=== PATIENT | female | born 1975 | race American Indian/Alaskan Native ===

== ENCOUNTER 2023-12-17 07:59 | Outpatient (CLI) | payer BC, SELFPAY ==
[2023-12-17 20:01] LABS: Hematocrit 42.1 % (37.0-47.0); Hemoglobin 13.3 g/dL (12.0-15.0); Mean Corpuscular HGB Conc 31.6 g/dl (32-36); Mean Corpuscular Hemoglobin 28.7 pg (26-34); Mean Corpuscular Volume 90.9 fl (80-100); Platelet Count Result 316 k/mm3 (150-375); Red Blood Count 4.63 M/mm3 (4.2-5.4); Red Cell Distribution Width 13.8 % (11.5-14.5); White Blood Count 6.8 K/mm3 (4.5-10.0)
[2023-12-17 20:20] LABS: Alanine Aminotransferase 19 U/L (6-35); Albumin Level 4.1 g/dL (3.5-5.1); Alkaline Phosphatase 115 U/L (38-126); Anion Gap 5 mmol/L (4-12); Aspartate Amino Transferase 43 U/L (14-36); Bilirubin,Total 0.5 mg/dL (0.2-1.3); Blood Urea Nitrogen 17 mg/dL (7-17); Calcium 8.8 mg/dL (8.4-10.2); Carbon Dioxide 29 mmol/L (22-30); Chloride 105 mmol/L (98-107); Cholesterol 193 mg/dL (0-200); Estimated Glomerular Filt Rate > 60; Glucose 84 mg/dL (65-110); HDL Direct 69 mg/dL; Potassium 4.1 mmol/L (3.4-5.0); Sodium 139 mmol/L (137-145); Triglycerides 85 mg/dL (<150)
[2023-12-17 20:33] LABS: Hemoglobin A1C 5.6 % (<5.7)
[2023-12-17 20:45] LABS: LDL Cholesterol Direct 93 mg/dL
[2023-12-17 20:51] LABS: Free T4 Free Thyroxine 1.32 ng/mL (0.78-2.19)
[2023-12-22 10:32] LABS: Vitamin D 1,25 (OH)2 Total 42 pg/mL (18-72); Vitamin D2 1,25 (OH)2 32 pg/mL; Vitamin D3 1,25 (OH)2 10 pg/mL
== END 2023-12-17 08:00 | disposition home or self-care (01) ==
LOC: ANHGOSHLAB 08:01
PROVIDERS: PCP Family Medicine; Visit Provider Family Medicine
DX: R73.09 Other abnormal glucose (principal); F41.9 Anxiety disorder, unspecified; E66.3 Overweight; E55.9 Vitamin D deficiency, unspecified; E07.9 Disorder of thyroid, unspecified; E03.9 Hypothyroidism, unspecified
CPT/HCPCS: 36415; 80053; 80061; 82652; 83036; 84439; 84443; 85027

== ENCOUNTER 2024-09-22 08:04 | Outpatient (CLI) | payer OTHER, SELFPAY ==
--- OUTSIDE RECORDS SUMMARY | 2024-09-22 08:14 | XMS_ITS | Encounter Summary ---
Author Organization [facility] Address [address] [facility] [address] [place] [address] Phone Care Team Providers Care Auto Haulaway Driver Name Role Phone Katya Fonseca MD Primary Care Provider Reason for Visit * Reason Comments Medication Refill Encounter Details Date Type Department Care Team (Late st Contact Info) Description 02/25/2022 Refill [facility] - Family Medicine [facility] [address] [place] [address] Katya Fonseca MD [address] [place] [address] Medication Refill Social History Tobacco Use Types Packs/Day Years Used Date Smoking Tobacco: Never Smokeless Tobacco: Never Alcohol Use Standard Drinks/Week Comments No 0 (1 standard drink = 0.6 oz pur e alcohol) PHQ-2 Answer Date Recorded Total Score - Questions 1-9 0 09/25 Comments No Sex and Gender Information Value Date Recorded Sex Assigned at Not on file Legal Sex Female 7:16 PM CDT Gender Identity Not on file Sexual Orientation Not on file COVID-19 Exposure Response Date Recorded In the last 10 days, have yo u been in contact with someone who was confirmed or suspected to have Coronavirus/COVID-19? No / Unsure 02/22/2022 9:04 AM CDT documented as of this encounter Miscellaneous Notes * Telephone Encounter - Shweta Miranda RN - 02/27/2022 8:09 AM CDT Name from pharmacy: Esomeprazole Magnesium 40 MG Oral Capsule Delayed Release Will file in chart as: esomeprazole (NexIUM) 40 MG CAPSULE DELAYED RELEASE The original prescription was discontinued on 08/28/2020 documented in this encounter Plan of Treatment Not on file documented as of this encounter Visit Diagnoses Not on filedocumented in this encounter Additional Health Concerns Assessment Noted Time PHQ-9 Depression Total Score: 0 08/23/19 21 7:33 AM 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
--- OUTSIDE RECORDS SUMMARY | 2024-09-22 08:14 | XMS_ITS | Encounter Summary ---
Author Organization [facility] Address [address] [facility] [place] [address] Phone Care Team Providers Care Adjuster And Inspector Name Role Phone Katya Fonseca MD Primary Care Provider Reason for Visit * Reason Comments Medication Refill Encounter Details Date Type Department Care Team (Late st Contact Info) Description 10/19/2020 [facility]ill [facility] [address] [place] [address] Katya Fonseca MD [address] [place] [address] Medication Refill Social History Tobacco Use Types Packs/Day Years Used Date Smoking Tobacco: Never Smokeless Tobacco: Never Alcohol Use Standard Drinks/Week Comments No 0 (1 standard drink = 0.6 oz pur e alcohol) PHQ-2 Answer Date Recorded Total Score - Questions 1-9 0 07/29 Comments No Sex and Gender Information Value Date Recorded Sex Assigned at Not on file Legal Sex Female 7:16 PM CDT Gender Identity Not on file Sexual Orientation Not on file documented as of this encounter Miscellaneous Notes * Telephone Encounter - Edelmira Lema, OLMAN - 10/20/2020 4:20 PM CDT Patient should have tsh missed lab appointment yesterday, dose was changed and suggest having tsh checked prior to sending in 90 day supply of levothyroxine incase needs different dose * Telephone Encounter - Shweta Miranda RN - 10/20/2020 3:21 PM CDT Medication failed the protocol, provider to review and approve the medication order if appropriate. Requested Prescriptions Pending Prescriptions Disp Refills levothyroxine (SYNTHROID) 88 MCG Tablet [Pharmacy Med Name: Levothyroxine Sodium 88 MCG Oral Tablet] 90 Tablet 1 Sig: Take 1 tablet by mouth once daily Endocrinology: Hypothyroid Agents Failed - 10/20/2020 2:22 PM Failed - TSH in normal range and within 360 days No results found for: TSH Passed - Valid encounter within last 12 months Past Office Visits Recent Outpatient Visits 1 month ago Hypothyroidism due to acquired atrophy of thyroid [facility] Katya Beal MD 1 year ago Encounter for screening mammogram for breast cancer [facility] Katya Beal MD 2 years ago Anxiety [facility] Katya Beal MD 2 years ago Palpitations [facility] Katya Beal MD 3 years ago Hypothyroidism due to acquired atrophy of thyroid [facility] Katya Beal MD Upcoming Appointments Future Appointments In 3 weeks Keesha Barrera, OLMAN [facility] [place] SPINDLE MAKER - Recent and Past Visits Recent Visits Date Type Provider Dept 08/23/20 Office Visit Katya Fonseca MD [facility] [place] Showing recent visits within past 460 days with a meds authorizing provider and meeting all other requirements Future Appointments No visits were found meeting these conditions. Showing future appointments within next 90 days with a meds authorizing provider and meeting all other requirements escitalopram (LEXAPRO) 10 MG Tablet [Pharmacy Med Name: Escitalopram Oxalate 10 MG Oral Tablet] 90 Tablet 1 Sig: Take 1 tablet by mouth once daily Not Delegated - Psychiatry: Antidepressants Failed - 10/20/2020 2:22 PM Failed - This refill cannot be delegated Passed - Valid encounter within last 12 months Past Office Visits Recent Outpatient Visits 1 month ago Hypothyroidism due to acquired atrophy of thyroid [facility] - Katya Beal MD 1 year ago Encounter for screening mammogram for breast cancer [facility] Katya Beal MD 2 years ago Anxiety [facility] Katya Beal MD 2 years ago Palpitations [facility] Katya Beal MD 3 years ago Hypothyroidism due to acquired atrophy of thyroid [facility] Katya Beal MD Upcoming Appointments Future Appointments In 3 weeks Keesha Barrera Cecilia, PAC [facility] SPINDLE [facility]ER - Recent and Past Visits Recent Visits Date Type Provider Dept 08/23/20 Office Visit Katya Fonseca MD [facility] Showing recent visits within past 460 days with a meds authorizing provider and meeting all other requirements Future Appointments No visits were found meeting these conditions. 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
--- OUTSIDE RECORDS SUMMARY | 2024-09-22 08:14 | XMS_ITS | Clinical Summary ---
Author Organization [facility] [employer] Address [address] [place] [address] Care Team Providers Care Labor Contractor Name Role Phone Unavailable Primary Care Provider Unavailabl e Source Comments [facility],non-owned Affiliates and Associated Physician Practices is amultiple site organization consisting of ambulatory clinics and hospital sitesin [place], [place], [place] and [place]. This disclosure is being madepursuant to the Care Everywhere program and may not contain all information available regarding this patient. Last updated 18.[facility] [employer] Allergies No known active allergies Immunizations Name Administration Dates Next Due INFLUENZA VACCINE, QUADR. (F LUZONE; FLULAVAL; FLUARIX; AFLURIA QUADRIVALENT; 6MO+), 0.5 ML (IIV4) 07/01/2019 MENINGOCOCCAL CONJUGATE (MCV4P) 07/01/2019 Social History Tobacco Use Types Packs/Day Years Used Date Smoking Tobacco: Never Assessed Sex and Gender Information Value Date Recorded Sex Assigned at Not on file Gender Identity Not on file Sexual Orientation Not on file Plan of Treatment Health Maintenance Due Date Last Done Comments COLOGUARD (AGES 45-75) - COL ON CA SCREENING 1974 COLON MONITORING 1974 COLONOSCOPY - COLON CA SCREENING 1974 CT COLONOGRAPHY - COLON CA SCREENING 1974 FLEX SIG - COLON CA SCREENING 1974 LIPID TESTING 1974 MAMMOGRAM 1974 PAP SMEAR 1974 HIV SCREENING 1989 HEPATITIS C SCREENING 07/03/1992 DTAP/TDAP/TD VACCINES (1 - Tdap) 1993 HEPATITIS B VACCINE (1 of 3 - 19+ 3-dose series) 1993 Colorectal Cancer Screening 06/08/2020 FIT - COLON CA SCREENING 06/08/2020 06/08/2019 COVID-19 VACCINE (2023-2 5 season) 2024 INFLUENZA VACCINE (#1) 2024 9, 05/19/2017 PNEUMOCOCCAL VACCINE 50+ (1 of 1 - PCV) 2024 ZOSTER VACCINE (1 of 2) 2024 DEPRESSION SCREENING 07/28/2024 MENINGOCOCCAL VACCINE Aged Out 07/01/2019 No joe erika eligible based on patient's age to complete this topic HIB VACCINE Aged Out No longer eligi ble based on patient's age to complete this topic HPV VACCINE Aged Out No longer eligi ble based on patient's age to complete this topic MENINGOCOCCAL (Group B) VACCINE Aged Out No longer eligible b ased on patient's age to complete this topic PNEUMOCOCCAL VACCINE Aged Out No long er eligible based on patient's age to complete this topic Advance Directives Documents on File Type Date Recorded 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
--- OUTSIDE RECORDS SUMMARY | 2024-09-22 08:14 | XMS_ITS | Patient Health Summary ---
Author Organization [facility] Address [address] [place] [address] Care Team Providers Care Photograph Finisher Name Role Phone Unavailable Primary Care Provider Unavailabl e Note from [facility],non-owned Affiliates and Associated Physician Practices is amultiple site organization consisting of ambulatory clinics and hospital sitesin [place], [place], [place] and [place]. This disclosure is being madepursuant to the Care Everywhere program and may not contain all information available regarding this patient. Last updated 18.[facility] Allergies No known active allergies Immunizations * INFLUENZA VACCINE, QUADR. (FLUZONE; FLULAVAL; FLUARIX; AFLURIA QUADRIVALENT; 6MO+), 0.5 ML (IIV4)(Given 07/01/2019) * MENINGOCOCCAL CONJUGATE (MCV4P)(Given 07/01/2019) Social History Tobacco Use Types Packs/Day Years Used Date Smoking Tobacco: Never Assessed Sex and Gender Information Value Date Recorded Sex Assigned at Not on file Gender Identity Not on file Sexual Orientation Not on file
--- OUTSIDE RECORDS SUMMARY | 2024-09-22 08:14 | XMS_ITS | Referral Summary ---
Author Organization [facility] Address [address] [place] [address] Care Team Providers Care Siding Applicator Name Role Phone Unavailable Primary Care Provider Unavailabl e Source Comments [facility],non-owned Affiliates and Associated Physician Practices is amultiple site organization consisting of ambulatory clinics and hospital sitesin [place], [place], [place] and [place]. This disclosure is being madepursuant to the Care Everywhere program and may not contain all information available regarding this patient. 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
--- OUTSIDE RECORDS SUMMARY | 2024-09-22 08:14 | XMS_ITS | Clinical Summary ---
Author Organization [facility] Address [facility] [place] [address] Care Team Providers Care Criminal Investigator Customs Name Role Phone Paula Mallory MD Primary Care Provider [phone] Allergies No known active allergies Medications vitamin D2, ergocalciferol, (DRISDOL) 1.25 mg capsuleIndicati ons:Vitamin D deficiency Take 1 capsule (50,000 Units total) by mouth every 7 days. 06/05/2022 Active escitalopram (LEXAPRO) 10 MG tabletIndicatio ns:BARBARA (generalized anxiety disorder) Take 1 tablet (10 mg total) by mouth daily. 90 tablet 1 10/09/2022 Active levothyroxine (SYNTHROID) 75 MCG tabletIndicatio ns:Hypothyroidi sm (acquired) Take 1 tablet by mouth once daily 30 tablet 06/21/2024 Active Active Problems No known active problems Encounters Date Type Department Care Team Description 08/06/2024 Telephone [facility] - [address] [place] [address] Paula Mallory MD Follow Up from Last 3 Months Immunizations Name Administration Dates Next Due Influenza (Generic) 05/15/2021,05/19/2017 Influenza Adult (Generic) 06/03/2022,08/23/2020, 07/01/2019 MMR (MMRII) 03/10/2016,11/27/2015 Meningococcal (Menactra) 07/01/2019,12/10/2016 Family History Medical History Relation Comments Diabetes Father Hyperlipidemia Mother Relation Status Comments Father Mother Social History Tobacco Use Types Packs/Day Years Used Date Smoking Tobacco: Never Smokeless Tobacco: Never Tobacco Cessation:Counseling Given: Not Answered Alcohol Use Standard Drinks/Week Comments Never 0 (1 standard drink = 0.6 oz pur e alcohol) Comments No Sex and Gender Information Value Date Recorded Sex Assigned at Not on file Legal Sex Female 10:43 AM CDT Gender Identity Not on file Sexual Orientation Not on file Last Filed Vital Signs Vital Sign Reading Time Taken Comments Blood Pressure 149/86 10/09/2022 2:22 PM CDT Pulse 72 10/09/2022 1:21 PM CDT Temperature 36.7 C (98.1 F) 10/09/2022 1:21 PM CDT Respiratory Rate 18 10/09/2022 1:21 PM CDT Oxygen Saturation 99% 10/09/2022 1:21 PM CDT Inhaled Oxygen Concentration - - Weight 69.5 kg (153 lb 3.2 oz) 10/09/2022 1:21 P M CDT Height 157.5 cm (5' 2 ) 10/09/2022 1:21 PM CDT Body Mass Index 28.02 10/09/2022 1:21 PM CDT Plan of Treatment Health Maintenance Due Date Last Done Comments Colorectal Cancer Screening Colonoscopy (10 Years) 1974 PHQ-2 (Physician [place]) 1986 Hepatitis C 1992 DTaP, Tdap and Td Vaccines (1 - Tdap) 1993 Hepatitis B Vaccines (1 of 3 - 19+ 3-dose series) 1993 Cervical Cancer Screening Pap with HPV Testing (Age 30 to 64) Every 5 Years 2004 Mammogram Screening 2014 Annual Physical 10/10/2023 10/09/2022 COVID-19 Vaccine ( season) 2024 07/23/2021, 10/15/2020, 09/23/2020 Influenza Adult (#1) 2024 06/11/2023, 06/03/2022, 05/15/2021, Additional history exists Zoster Vaccines (1 of 2) 2024 PHQ-2 (Physician [place]) 07/28/2024 Cervical Cancer Screening Pap Smear (Age 30 to 64) Every 3 Years 06/11/2026 06/11/2023 Cervical Cancer Screening with HPV 06/11/2026 Meningococcal Vaccine Aged Out 07/01/2019, 017 No longer eligible based on patient's age to complete this topic Meningococcal B Vaccine Aged Out No l onger eligible based on patient's age to complete this topic Pneumococcal Vaccine: Pediatrics (0 to 5 Years) and At-Risk Patients (6 to 64 Years) Aged Out No longer eligible based on patient's age to complete this topic RSV Immunizations Under 20 Months Aged Out No longer eligible based on patient's age to complete this topic Insurance [facility] Care Teams Criminal Investigator Customs Relationship Specialty Start Date End Date Paula Mallory MD [address] [address] PCP - General INTERNAL MEDICINE 10/07/22
--- OUTSIDE RECORDS SUMMARY | 2024-09-22 08:15 | XMS_ITS | Encounter Summary ---
Author Organization [facility] Address [address] [place] [address] Phone Care Team Providers Care Chart Reader Name Role Phone Katya Fonseca MD Primary Care Provider Reason for Visit * Reason Comments Medication Refill Encounter Details Date Type Department Care Team (Late st Contact Info) Description 12/24/2023 Refill [facility] - Family Medicine [facility] [address] [place] [address] Edelmira Lema, OLMAN [address] [place] [address] Medication Refill Social History Tobacco Use Types Packs/Day Years Used Date Smoking Tobacco: Never Smokeless Tobacco: Never Alcohol Use Standard Drinks/Week Comments No 0 (1 standard drink = 0.6 oz pur e alcohol) PHQ-2 Answer Date Recorded Total Score - Questions 1-9 0 01/2022 Comments No Sex and Gender Information Value Date Recorded Sex Assigned at Not on file Legal Sex Female 7:16 PM CDT Gender Identity Not on file Sexual Orientation Not on file documented as of this encounter Miscellaneous Notes * Telephone Encounter - Shweta Miranda RN - 12/25/2023 8:35 AM CDT Needs BELLO * Telephone Encounter - Shweta Miranda RN - 12/25/2023 8:35 AM CDT Medication(s) refilled and signed per [facility] Chronic Medication Refill Standing Order for Pediatricand Adult Patients. Requested Prescriptions Pending Prescriptions Disp Refills metoprolol Succinate (TOPROL-XL) 25 MG TABLET SR 24 HR [Pharmacy Med Name: Metoprolol Succinate ER 25 MG Oral Tablet Extended Release 24 Hour] 30 Tablet 0 Sig: Take 1 tablet by mouth once daily Beta-Blockers Protocol Passed - 12/24/2023 2:03 PM Passed - BP on record in the past year Clinician-entered: BP Readings from Last 3 Encounters: 06/11/23 136/88 02/17/23 124/78 12/17/22 118/72 Patient-entered: No data recorded Passed - Visit with relevant provider in past 12 months or upcoming 90 days Recent Visits Date Type Provider Dept 06/11/23 Office Visit Katya Fonseca MD [facility] 02/17/23 Office Visit Katya Fonseca MD [facility] [place] Showing recent visits within past 365 days and meeting all other requirements Future Appointments No visits were found meeting these conditions. Showing future appointments within next 90 days and meeting all other requirements documented in this encounter Plan of Treatment Not on file documented as of this encounter Visit Diagnoses Not on filedocumented in this encounter Additional Health Concerns Assessment Noted Time PHQ-9 Depression Total Score: 0 06/03/20 22 7:44 AM CRAPS MANAGER documented as of this encounter Care Teams Chart Reader Relationship Specialty Start Date End Date Katya Fonseca MD [address] [place] [address] PCP - General Family Medicine 07/01/15 01/12/24 documented as of this encounter
--- OUTSIDE RECORDS SUMMARY | 2024-09-22 08:15 | XMS_ITS | Clinical Summary ---
Author Organization [facility] Address [address] [place] [address] Phone Care Team Providers Care Criminal Justice Faculty Name Role Phone Unavailable Primary Care Provider Unavailabl e Allergies No known active allergies Medications Aspirin-Acetamin ophen-Caffeine (MIGRAINE FORMULA PO) Take by mouth. Active VITAMIN D PO Take 3,000 Units by mouth daily. Active levothyroxine (SYNTHROID) 75 MCG Tablet Take 1 Tablet by mouth daily. 90 Tablet 1 06/11/2023 Active Vitamin D, Ergocalciferol, 44488 units Capsule Take 50,000 Int'l Units by mouth once a week. 8 Capsule 09/02/2023 Active escitalopram (LEXAPRO) 10 MG Tablet Take 1 Tablet by mouth daily. 90 Tablet 09/02/2023 Active metoprolol Succinate (TOPROL-XL) 25 MG TABLET SR 24 HR Take 1 tablet by mouth once daily 30 Tablet 12/25/2023 Active Active Problems Problem Noted Date Diagnosed Date Anxiety Hypothyroidism Prediabetes Encounters Date Type Department Care Team Description 09/21/2024 Refill [facility] [address] [place] [address] Katya Fonseca MD Medication Refill from Last 3 Months Immunizations Immunization Administration Dates Next Due Influenza Vaccine greater than 3 yrs 05/19/2017 05/19/2018 Influenza Vaccine, Quadrivalent, PF 05/28,06/03/2022,08/23/2020,11/2018 Influenza Vaccine,unspecifie d Formulation 06/03/2022,08/23/2020,07/01/2019 Influenza, Seasonal, Injecta ble, Undefined 05/15/2021,05/19/2017 MMR Vaccine 03/10/2016,11/27/2015 Meningococcal Vaccine 07/01/2019,12/10/2016 Family History Medical History Relation Name Comments No Known Problems Father Cancer Mother Relation Name Status Comments Father Mother Social History Tobacco Use Types Packs/Day Years Used Date Smoking Tobacco: Never Smokeless Tobacco: Never Tobacco Cessation:Counseling Given: Yes Alcohol Use Standard Drinks/Week Comments No 0 [...] Sign Reading Time Taken Comments Blood Pressure 136/88 06/11/2023 7:34 AM COATING TECHNICIAN Pulse 77 06/11/2023 7:34 AM COATING TECHNICIAN Temperature 36.4 C (97.6 F) 06/11/2023 7:34 AM COATING TECHNICIAN Respiratory Rate 18 02/17/2023 11:29 AM CDT Oxygen Saturation 100% 06/11/2023 7:34 AM COATING TECHNICIAN Inhaled Oxygen Concentration - - Weight 71.7 kg (158 lb) 06/11/2023 7:34 AM COATING TECHNICIAN Height 152.4 cm (5') 06/11/2023 7:34 AM COATING TECHNICIAN Body Mass Index 30.86 06/11/2023 7:34 AM COATING TECHNICIAN Plan of Treatment Health Maintenance Due Date Last Done Comments Hepatitis C Virus (HCV) Screening 1974 TdaP Immunization 1974 Hepatitis B Immunization (1 of 3 - 19+ 3-dose series) 1993 HPV/Cotest 2004 Colonoscopy 2019 Colorectal Cancer Screening 2019 Mammogram 02/11/2020 02/10/2019 Influenza Immunization (#1) 03/28/202405/28, 06/03/2022, 06/03/2022, Additional history exists SARS-COV-2 Immunization ( season) 2024 07/23/2021, 10/15/2020, 09/23/2020 Cologuard 2024 Immunochemical Fecal Occult Blood 2024 Pneumococcal Immunization (50+ years) (1 of 1 - PCV) 2024 Zoster Immunization (1 of 2) 2024 Cervical Cancer Screening (CCS) 06/11/2026 Pap Smear 06/11/2026 06/11/2023, 07/19/2014 Respiratory Syncytial Virus (RSV) Immunization (Adult) (1 - 1-dose 75+ series) 2049 Discussion re Starting/Frequency of Mammograms Discontinued 02/10/2019 Meningococcal Immunization (ACWY) Aged Out 07/01/2019, 12/10/2016 No longer eligibl e based on patient's age to complete this topic Rotavirus Immunization Aged Out No lo nger eligible based on patient's age to complete this topic Procedures Procedure Name Priority Date/Time Associated Diagnosis Comments PATHOLOGY CYTOLOGY PLATER HELPER Routine 06/11/2023 9:23 AM COATING TECHNICIAN Well woman exam SHERIF SCREENING BILATERAL DIGITAL W CAD W NGUYEN Routine 02/10/2019 11:39 AM CDT Encounter for screening mammogram for breast cancer from Last 3 Months or Most Recently Relevant to Health Maintenance Results * PATHOLOGY CYTOLOGY PLATER HELPER (06/11/2023 9:23 AM COATING TECHNICIAN) SPECIMEN ADEQUACY Satisfactory for evaluation. Endocervical/transf ormation zone component is absent. 06/23/2023 12:38 PM COATING TECHNICIAN [facility] DESCRIPTIVE DIAGNOSIS NEGATIVE FOR INTRAEPITHELIAL LESIONS OR MALIGNANCY. 06/23/2023 12:38 PM COATING TECHNICIAN [facility] Automated Examination Analysis of this sample has been assisted by an automated imaging and review system ([employer], [employer], [place], [place]). This case is further evaluated and finalized by a airport screener and/or pathologist. 06/23/2023 12:38 PM COATING TECHNICIAN [facility] Disclaimer The PAP smear is a screening test designed to detect cancerous or precancerous cells of the uterine cervix. It is one of the best means available for detection of cervical cancer but still carries an inherent false-negative rate. The consequences of a false-negative PAP result can be minimized by adhering to current screening guidelines. The following are general guidelines recommended by the ACS, ASCP, ASCCP, and ACOG: PAP testing is recommended every three years for women 21-29, Co-Testing , a PAP test in conjunction with an HPV (Human Papillomavirus) test for women ages 30-65, and no PAP or HPV testing for women under the age of 21 or older than 65 unless clinically indicated. 06/23/2023 12:38 PM COATING TECHNICIAN [facility] Case Report Gynecologic Cytology Report Case: [id number] Authorizing Provider: Katya Fonseca MD Collected: 06/11/2023 09:23 AM Ordering Location: [facility] - Family Received: 06/11/2023 09:23 AM Medicine - [place] First Screen: Andrae Bryant Rescreen: Sintia Lucio Specimen: TP Screen, Cervix/Endocervix 06/23/2023 12:38 PM COATING TECHNICIAN [facility] Other CERVIX UTERI STRUCTURE / Unknown Non-Phlebotomy Collection / Unknown 06/11/2023 9:23 AM COATING TECHNICIAN 06/11/2023 9:23 AM COATING TECHNICIAN us Katya Fonseca MD PATHOLOGY/CYTOLOGY ORDERABL ES Final Result [facility] [address] [place] [address], [place] * SHERIF SCREENING BILATERAL DIGITAL W CAD W NGUYEN (02/10/2019 11:39 AM CDT) Anatomical Region Laterality Modality breast Bilateral Mammography 02/10/2019 11:4 8 AM CDT Narrative 02/10/2019 3:44 PM CDT - SHERIF SCREENING BILATERAL DIGITAL W CAD W NGUYEN BILATERAL DIGITAL SCREENING MAMMOGRAM 3D/2D WITH CAD WITH MEDIOLATERAL OBLIQUE CRANIOCAUDAL: 02/10/2019 The study was acquired using digital technology and interpreted from soft copy. Current study was also evaluated with ICAD version 7.2. CLINICAL: Baseline screening. Patient has no complaints. No personal history of cancer. No family history of breast cancer. COMPARISONS: No prior exams were available for comparison. BREAST TISSUE:There are scattered fibroglandular densities in both breasts. FINDINGS: No significant masses, calcifications, or other findings are seen in either breast. IMPRESSION: BI-RAD 1 NEGATIVE There is no mammographic evidence of malignancy. A 1 year screening mammogram is recommended. The patient has been or will be contacted. The patient will be entered into a reminder system with a target due date of 1 year for her next screening exam. Electronically signed by: Helen pinto/penrad:02/10/2019 15:13:56 Mold Closer: [facility] ([place]: Normal Exam Reading location: MON BI-RADS: 1 Negative Procedure Note Helen Atkins MD - 02/10/2019 - SHERIF SCREENING BILATERAL DIGITAL W CAD W NGUYEN BILATERAL DIGITAL SCREENING MAMMOGRAM 3D/2D WITH CAD WITH MEDIOLATERAL OBLIQUE CRANIOCAUDAL: 02/10/2019 The study was acquired using digital technology and interpreted from soft copy. Current study was also evaluated with ICAD version 7.2. CLINICAL: Baseline screening. Patient has no complaints. No personal history of cancer. No family history of breast cancer. COMPARISONS: No prior exams were available for comparison. BREAST TISSUE:There are scattered fibroglandular densities in both breasts. FINDINGS: No significant masses, calcifications, or other findings are seen in either breast. IMPRESSION: BI-RAD 1 NEGATIVE There is no mammographic evidence of malignancy. A 1 year screening mammogram is recommended. The patient has been or will be contacted. The patient will be entered into a reminder system with a target due date of 1 year for her next screening exam. Electronically signed by: Helen Atkins M.D. rb/penrad:02/10/2019 15:13:56 Mold Closer: Em Porter ([place]), [facility] sent: Normal Exam Reading location: MON BI-RADS: 1 Negative Katya Fonseca MD IMG MAMMO ORDERABLES Final Result from Last 3 Months or Most Recently Relevant to Health Maintenance Insurance [facility]
--- OUTSIDE RECORDS SUMMARY | 2024-09-22 08:15 | XMS_ITS | Encounter Summary ---
Author Organization [facility] Address [address] [facility] [place] [address] Phone Care Team Providers Care Casting Operator Name Role Phone Katya Fonseca MD Primary Care Provider Reason for Visit * Reason Comments Medication Refill Encounter Details Date Type Department Care Team (Late st Contact Info) Description 07/03/2023 Refill [facility] [address] [place] [address] Katya Fonseca MD [address] [place] [address] Medication Refill Social History Tobacco Use Types [...] Telephone Encounter - Shweta Miranda RN - 07/04/2023 10:41 AM CST Name from pharmacy: Vitamin D (Ergocalciferol) 1.25 MG (48880 UT) Oral Capsule Will file in chart as: ergocalciferol (VITAMIN D) 57718 UNIT Capsule The original prescription was discontinued on 06/11/2023 by Katya Fonseca MD TECHNICAL MGR documented in this encounter Plan of Treatment Not on file documented as of this encounter Visit Diagnoses Diagnosis Low vitamin D level documented in this encounter Additional Health Concerns Assessment Noted Time PHQ-9 Depression Total Score: 0 06/03/20 22 7:44 AM DEV TECHNICAL MGR documented as of this encounter Care Teams Casting Operator Relationship Specialty Start Date End Date Katya Fonseca MD [address] [place] [address] PCP - General Family Medicine 07/01/15 01/12/24 documented as of this encounter
--- OUTSIDE RECORDS SUMMARY | 2024-09-22 08:15 | XMS_ITS | Encounter Summary ---
Author Organization [facility] Address [address] [facility] [place] [address] Phone Care Team Providers Care Ip Technology Transactions Attorney Name Role Phone Katya Fonseca MD Primary Care Provider [phone] Reason for Visit * Reason Comments Medication Refill Encounter Details Date Type Department Care Team (Late st Contact Info) Description 03/07/2023 Refill [facility] [address] [place] [address] Katya Fonseca MD [address] [place] [address] Medication Refill Social History Tobacco Use Types [...] suspected to have Coronavirus/COVID-19? No / Unsure 02/17/2023 11:28 AM CDT documented as of this encounter Miscellaneous Notes * Telephone Encounter - Shweta Miranda RN - 03/07/2023 3:20 PM CDT Per nursing clinical judgement, provider to review and approve the medication(s) order(s) if appropriate. Requested Prescriptions Pending Prescriptions Disp Refills ergocalciferol (VITAMIN D) 96457 UNIT Capsule [Pharmacy Med Name: Vitamin D (Ergocalciferol) 1.25 MG (87277 UT) Oral Capsule] 12 Capsule 0 Sig: Take 1 capsule by mouth once a week Vitamin Supplements (Adult) Protocol Passed - 03/07/2023 1:03 PM Passed - Visit with relevant provider in past 12 months or upcoming 90 days Recent Visits Date Type Provider Dept 02/17/23 Office Visit Katya Fonseca MD [facility] [place] 12/17/22 Office Visit Katya Fonseca MD [facility] [place] 06/03/22 Office Visit Katya Fonseca MD [facility] [place] 03/21/22 Office Visit Katya Fonseca MD [facility] [place] Showing recent visits within past 365 days and meeting all other requirements Future Appointments No visits were found meeting these conditions. Showing future appointments within next 90 days and meeting all other requirements Passed - Vitamin D dose not greater than 1.25mg documented in this encounter Plan of Treatment Not on file documented as of this encounter Visit Diagnoses Diagnosis Low vitamin D level documented in this encounter Additional Health Concerns Assessment Noted Time PHQ-9 Depression Total Score: 0 06/03/20 7:44 AM AIRCONDITIONING DRAFTING OFFICER documented as of this encounter Care Teams Ip Technology Transactions Attorney Relationship Specialty Start Date End Date Katya Fonseca MD [address] [place] [address] PCP - General Family Medicine 07/01/15 01/12/24 documented as of this encounter
--- OUTSIDE RECORDS SUMMARY | 2024-09-22 08:15 | XMS_ITS | Encounter Summary ---
Author Organization [facility] Address [address] [facility] [place] [address] Phone Care Team Providers Care Caretaker Grounds Name Role Phone Unavailable Primary Care Provider Unavailabl e Reason for Visit * Reason Comments Medication Refill Encounter Details Date Type Department Care Team (Late st Contact Info) Description 09/21/2024 Refill [facility] [address] [place] [address] Katya Fonseca MD [address] [place] [address] Medication Refill Social History Tobacco Use Types [...] on file documented as of this encounter Plan of Treatment Not on file documented as of this encounter Visit Diagnoses Not on filedocumented in this encounter Additional Health Concerns Assessment Noted Time PHQ-9 Depression Total Score: 0 06/03/20 22 7:44 AM ENGRAVER LETTERING documented as of this encounter
--- OUTSIDE RECORDS SUMMARY | 2024-09-22 08:15 | XMS_ITS | Encounter Summary ---
Author Organization [facility] Address [address] [facility] [address] Phone Care Team Providers Care Cover Machine Operator Name Role Phone Katya Fonseca MD Primary Care Provider [phone] Reason for Visit * Reason Comments Medication Refill Encounter Details Date Type Department Care Team (Late st Contact Info) Description 09/02/2023 Refill [facility] - Family Medicine [facility] [address] [place] [address] Katya Fonseca MD [address] [place] [address] Medication Refill Social History Tobacco Use Types [...] Telephone Encounter - Shweta Miranda RN - 09/03/2023 7:33 AM CST Name from pharmacy: Escitalopram Oxalate 10 MG Oral Tablet Will file in chart as: escitalopram (LEXAPRO) 10 MG Tablet The original prescription was reordered on 09/02/2023 by Edelmira Lema PAC. Y LEVEL ACCOUNT MANAGER * Telephone Encounter - Shweta Miranda RN - 09/02/2023 2:16 PM CST duplicate Y LEVEL ACCOUNT MANAGER documented in this encounter Plan of Treatment Not on file documented as of this encounter Visit Diagnoses Not on filedocumented in this encounter Additional Health Concerns Assessment Noted Time PHQ-9 Depression Total Score: 0 06/03/20 22 7:44 AM ENTRY LEVEL ACCOUNT MANAGER documented as of this encounter Care Teams Cover Machine Operator Relationship Specialty Start Date End Date Katya Fonseca MD [address] [place] [address] PCP - General Family Medicine 07/01/15 01/12/24 documented as of this encounter
--- OUTSIDE RECORDS SUMMARY | 2024-09-22 08:15 | XMS_ITS | Encounter Summary ---
Author Organization [facility] Address [address] [facility] [place] [address] Phone Care Team Providers Care Wardrobe Specialty Worker Name Role Phone Katya Fonseca MD Primary Care Provider Reason for Visit * Reason Onset Date Comments Referral 04/08/2023 External Gastroe nterology Referral Encounter Details Date Type Department Care Team (Late st Contact Info) Description 04/08/2023 Telephone [facility] [address] [place] [address] Katya Fonseca MD [address] [place] [address] Referral (External Gastroenterology Referral) Social History Tobacco Use Types Packs/Day Years Used Date Smoking Tobacco: Never Smokeless Tobacco: Never Alcohol Use Standard Drinks/Week Comments No 0 (1 standard drink = 0.6 oz pur e alcohol) PHQ-2 Answer Date Recorded Total Score - Questions 1-9 0 11/0 01/2022 Comments No Sex and Gender Information Value Date Recorded Sex Assigned at Not on file Legal Sex Female 7:16 PM CDT Gender Identity Not on file Sexual Orientation Not on file documented as of this encounter Miscellaneous Notes * Telephone Encounter - Erika Rubio - 04/08/2023 10:08 AM CDT SITUATION: [facility] Referrals is requesting provider review for External Gastroenterology Referral. BACKGROUND: Referral unable to be processed. ASSESSMENT: Request for provider review due to the following reason(s): Patient refusal or unable to contact patient. RECOMMENDATION: Based on the above information the provider has the following option(s): Multiple attempts have been made to contact patient about referral with no response. No further attempts will be made. Referral closed. documented in this encounter Plan of Treatment Not on file documented as of this encounter Visit Diagnoses Not on filedocumented in this encounter Additional Health Concerns Assessment Noted Time PHQ-9 Depression Total Score: 0 06/03/20 22 7:44 AM WELDING TEACHER documented as of this encounter Care Teams Wardrobe Specialty Worker Relationship Specialty Start Date End Date Katya Fonseca MD [address] [place] [address] PCP - General Family Medicine 07/01/15 01/12/24 documented as of this encounter
[2024-09-22 10:40] LABS: Hematocrit 41.3 % (37.0-47.0); Hemoglobin 13.2 g/dL (12.0-15.0); Mean Corpuscular Hemoglobin 29.3 pg (26-34); Mean Corpuscular Volume 91.8 fl (80-100); Mean Platelet Volume 11.6 fl (7.4-10.4); Platelet Count Result 330 k/mm3 (150-375); Red Cell Distribution Width 13.3 % (11.5-14.5); White Blood Count 7.2 K/mm3 (4.5-10.0)
[2024-09-22 11:30] LABS: Alanine Aminotransferase 21 U/L (6-35); Alkaline Phosphatase 107 U/L (38-126); Anion Gap 10 mmol/L (4-12); Aspartate Amino Transferase 38 U/L (14-36); Bilirubin,Total 0.5 mg/dL (0.2-1.3); Blood Urea Nitrogen 15 mg/dL (7-17); Carbon Dioxide 26 mmol/L (22-30); Chloride 103 mmol/L (98-107); Cholesterol 201 mg/dL (0-200); Estimated Glomerular Filt Rate > 60; Glucose 91 mg/dL (65-110); HDL Direct 72 mg/dL; Sodium 139 mmol/L (137-145); Triglycerides 73 mg/dL (<150)
[2024-09-22 11:41] LABS: LDL Cholesterol Direct 81 mg/dL
[2024-09-22 11:58] LABS: Thyroid Stimulating Hormone 0.228 uIU/mL (0.465-4.680)
[2024-09-22 20:56] LABS: Hemoglobin A1C 5.7 % (<5.7)
== END 2024-09-22 08:05 | disposition home or self-care (01) ==
LOC: ANHGOSHLAB 08:05
PROVIDERS: PCP Family Medicine; Visit Provider Family Medicine
DX: E55.9 Vitamin D deficiency, unspecified (principal); R73.09 Other abnormal glucose; E07.9 Disorder of thyroid, unspecified; E66.3 Overweight; E03.9 Hypothyroidism, unspecified; Z79.899 Other long term (current) drug therapy
CPT/HCPCS: 36415; 80053; 80061; 82652; 83036; 84443; 85027

== ENCOUNTER 2025-04-12 07:53 | Outpatient (CLI) | payer OTHER, SELFPAY ==
[2025-04-12 19:33] LABS: Hemoglobin A1C 5.7 % (<5.7)
[2025-04-12 19:37] LABS: Alanine Aminotransferase 14 U/L (6-35); Albumin Level 4.0 g/dL (3.5-5.1); Alkaline Phosphatase 102 U/L (38-126); Anion Gap 8 mmol/L (4-12); Aspartate Amino Transferase 43 U/L (14-36); Bilirubin,Total 0.4 mg/dL (0.2-1.3); Blood Urea Nitrogen 16 mg/dL (7-17); Calcium 8.7 mg/dL (8.4-10.2); Carbon Dioxide 27 mmol/L (22-30); Chloride 104 mmol/L (98-107); Cholesterol 201 mg/dL (0-200); Estimated Glomerular Filt Rate > 60; Glucose 66 mg/dL (65-110); HDL Direct 72 mg/dL; Potassium 3.8 mmol/L (3.4-5.0); Sodium 139 mmol/L (137-145); Total Protein 7.6 g/dL (6.3-8.2); Triglycerides 70 mg/dL (<150)
[2025-04-12 19:45] LABS: Hematocrit 41.5 % (37.0-47.0); Hemoglobin 12.8 g/dL (12.0-15.0); Mean Corpuscular HGB Conc 30.8 g/dl (32-36); Mean Corpuscular Hemoglobin 29.1 pg (26-34); Mean Corpuscular Volume 94.3 fl (80-100); Platelet Count Result 288 k/mm3 (150-375); Red Blood Count 4.40 M/mm3 (4.2-5.4); White Blood Count 6.6 K/mm3 (4.5-10.0)
[2025-04-12 20:01] LABS: Free T4 Free Thyroxine 0.88 ng/dL (0.78-2.19)
[2025-04-12 20:46] LABS: Thyroid Stimulating Hormone 20.000 uIU/mL (0.465-4.680)
[2025-04-16 07:09] LABS: 1,25-Dihydroxy, Vitamin D-2 <10 pg/mL (.); 1,25-Dihydroxy, Vitamin D-3 44 pg/mL (.); Total 1,25-Dihydroxy,Vitamin D 52 pg/mL (.)
== END 2025-04-12 07:54 | disposition home or self-care (01) ==
LOC: ANHGOSHLAB 07:54
PROVIDERS: PCP Family Medicine; Visit Provider Family Medicine
DX: F41.9 Anxiety disorder, unspecified (principal); Z79.899 Other long term (current) drug therapy; R73.09 Other abnormal glucose; E07.9 Disorder of thyroid, unspecified; E03.9 Hypothyroidism, unspecified; E55.9 Vitamin D deficiency, unspecified; E66.3 Overweight; Z00.00 Encounter for general adult medical examination without abnormal findings
CPT/HCPCS: 36415; 80053; 80061; 82652; 83036; 84439; 84443; 85027

== ENCOUNTER 2025-05-13 16:02 | Outpatient (CLI) | payer OTHER, SELFPAY ==
--- OUTSIDE RECORDS SUMMARY | 2025-05-13 16:05 | XMS_ITS | Encounter Summary ---
Author Organization [facility] Address [address] [place] [address] Phone Care Team Providers Care Spray Machine Loader Name Role Phone Katya Fonseca MD Primary Care Provider Reason for Visit * Reason Comments Medication Refill Encounter Details Date Type Department Care Team (Late st Contact Info) Description 12/24/2023 Refill [facility] - Family Medicine [facility] [address] [place] [address] Edelmira Lema, OLMAN [address] [place] [address] Medication Refill Social History Tobacco Use Types [...] AM CDT Medication(s) refilled and signed per [facility] Chronic Medication Refill Standing Order for Pediatricand [...] [place] 02/17/23 Office Visit Katya Fonseca MD [facility] Dmitry Showing recent visits within past 365 [...] Total Score: 0 06/03/20 22 7:44 AM INSPECTOR SUBASSEMBLY documented as of this encounter Care Teams Spray Machine Loader Relationship Specialty Start Date End Date Katya Fonseca MD PCP - General Family Medicine 07/01/15 01/12/24 documented as of this encounter
--- OUTSIDE RECORDS SUMMARY | 2025-05-13 16:05 | XMS_ITS | Encounter Summary ---
Author Organization [facility] Address [address] [place] [address] Phone Care Team Providers Care Patient Sitter Name Role Phone Katya Fonseca MD Primary Care Provider Reason for Visit * Reason Comments Medication Refill Encounter Details Date Type Department Care Team (Late st Contact Info) Description 03/07/2023 Refill [facility] - Family [facility] [address] [place] [address] [place] [address] [place] [address] Medication Refill Social History Tobacco Use Types [...] Pending Prescriptions Disp Refills ergocalciferol (VITAMIN D) 71412 UNIT Capsule [Pharmacy Med Name: Vitamin D (Ergocalciferol) 1.25 MG (51043 UT) Oral Capsule] 12 Capsule 0 Sig: [...] Total Score: 0 06/03/20 22 7:44 AM DIRECTOR CORPORATE COMMUNICATIONS documented as of this encounter Care Teams Patient Sitter Relationship Specialty Start Date End Date Katya Fonseca MD PCP - General Family Medicine 07/01/15 01/12/24 documented as of this encounter
--- OUTSIDE RECORDS SUMMARY | 2025-05-13 16:05 | XMS_ITS | Encounter Summary ---
Author Organization [facility] Address [address] [facility] [place] [address] Phone Care Team Providers Care Welding Machine Operator Gas Name Role Phone Katya Fonseca MD Primary Care Provider Reason for Visit * Reason Comments Medication Refill Encounter Details Date Type Department Care Team (Late st Contact Info) Description 09/02/2023 Refill [facility] - Family Medicine [facility] [address] [place] [address] [place] [address] [place] [address] Medication Refill Social History Tobacco Use Types [...] prescription was reordered on 09/02/2023 by Edelmira Lema, PAC. NE PUBLISHER * Telephone Encounter - Shweta Miranda RN - 09/02/2023 2:16 PM CST duplicate NE PUBLISHER documented in this encounter Plan of Treatment Not on file documented as of this encounter Visit Diagnoses Not on filedocumented in this encounter Additional Health Concerns Assessment Noted Time PHQ-9 Depression Total Score: 0 06/03/20 22 7:44 AM ONLINE PUBLISHER documented as of this encounter Care Teams Welding Machine Operator Gas Relationship Specialty Start Date End Date Katya Fonseca MD PCP - General Family Medicine 07/01/15 01/12/24 documented as of this encounter
--- OUTSIDE RECORDS SUMMARY | 2025-05-13 16:05 | XMS_ITS | Encounter Summary ---
Author Organization [facility] Address [address] [facility] [place] [address] Phone Care Team Providers Care Film Developing Machine Operator Name Role Phone Katya Fonseca MD Primary Care Provider [phone] Reason for Visit * Reason Comments Medication Refill Encounter Details Date Type Department Care Team (Late st Contact Info) Description 07/03/2023 Refill [facility] [address] [place] [address] [place] [address] [place] [address] Medication Refill Social History Tobacco Use Types [...] from pharmacy: Vitamin D (Ergocalciferol) 1.25 MG (00880 UT) Oral Capsule Will file in chart as: ergocalciferol (VITAMIN D) 56725 UNIT Capsule The original prescription was discontinued on 06/11/2023 by Katya Fonseca MD E RIGGER documented in this encounter Plan of Treatment Not on file documented as of this encounter Visit Diagnoses Diagnosis Low vitamin D level documented in this encounter Additional Health Concerns Assessment Noted Time PHQ-9 Depression Total Score: 0 06/03/20 22 7:44 AM CABLE RIGGER documented as of this encounter Care Teams Film Developing Machine Operator Relationship Specialty Start Date End Date Katya Fonseca MD PCP - General Family Medicine 07/01/15 01/12/24 documented as of this encounter
--- OUTSIDE RECORDS SUMMARY | 2025-05-13 16:05 | XMS_ITS | Clinical Summary ---
Author Organization [facility] Address [address] [place] [address] Care Team Providers Care Chro Name Role Phone Unavailable Primary Care Provider Unavailabl e Source Comments [facility],non-owned Affiliates and Associated Physician Practices is amultiple site organization consisting of ambulatory clinics and hospital sitesin [place], [place], [place] and [place]. This disclosure is being madepursuant to the Care Everywhere program and may not contain all information available regarding this patient. Last updated 18.[facility] [employer] Allergies No known active allergies Immunizations Immunization Administration Dates Next Due INFLUENZA VACCINE, QUADR. (F LUZONE; FLULAVAL; FLUARIX; AFLURIA QUADRIVALENT; 6MO+), 0.5 ML (IIV4) 07/01/2019 MENINGOCOCCAL ACWY (MCV4P) VAC IM 07/01/2019 Social History Tobacco Use Types Packs/Day Years Used Date Smoking Tobacco: Never Assessed Comments Unknown Sex and Gender Information Value Date Recorded Sex Assigned at Not on file Legal Sex Female 5:15 PM CDT Gender Identity Not on file Sexual Orientation Not on file Plan of Treatment Health Maintenance Due Date Last Done Comments COLOGUARD (AGES 45-75) - COL ON CA SCREENING 1974 COLON MONITORING 1974 COLONOSCOPY - COLON CA SCREENING 1974 CT COLONOGRAPHY - COLON CA SCREENING 1974 FLEX SIG - COLON CA SCREENING 1974 LIPID TESTING 1974 MAMMOGRAM 1974 HIV SCREENING 1989 HEPATITIS C SCREENING 07/03/1992 DTAP/TDAP/TD VACCINES (1 - Tdap) 1993 HEPATITIS B VACCINE (1 of 3 - 19+ 3-dose series) 1993 Colorectal Cancer Screening 06/08/2020 FIT - COLON CA SCREENING 06/08/2020 06/08/2019 PNEUMOCOCCAL VACCINE 50+ (1 of 1 - PCV) 2024 ZOSTER VACCINE (1 of 2) 2024 DEPRESSION SCREENING 07/28/2024 COVID-19 VACCINE (1 - 2023-2 5 season) 2025 INFLUENZA VACCINE (#1) 2025 9, 05/19/2017 MENINGOCOCCAL GROUPS A/C/Y/W VACCINE Aged Out 07/01/2019 No longer eligible b ased on patient's age to complete this topic HIB VACCINE Aged Out No longer eligi ble based on patient's age to complete this topic HPV VACCINE Aged Out No longer eligi ble based on patient's age to complete this topic MENINGOCOCCAL (Group B) VACCINE SHARED DECISION-MAKING Aged Out No longer eligible based on patient's age to complete this topic Insurance Advance Directives Documents on File Type Date Recorded Patient Network Account Manager Expl anation Adv Directive/Living Will/POA 12/11/2016
--- OUTSIDE RECORDS SUMMARY | 2025-05-13 16:05 | XMS_ITS | Encounter Summary ---
Author Organization [facility] Address [address] [facility] [place] [address] Phone Care Team Providers Care Manager Desktop Name Role Phone Unavailable Primary Care Provider Unavailabl e Reason for Visit * Reason Comments Medication Refill Encounter Details Date Type Department Care Team (Late st Contact Info) Description 09/21/2024 Refill [facility] [address] [place] [address] [place] [id number] [phone] Medication Refill Social History Tobacco Use Types [...] Depression Total Score: 0 06/03/20 7:44 AM RIBBON TIER documented as of this encounter
--- OUTSIDE RECORDS SUMMARY | 2025-05-13 16:05 | XMS_ITS | Clinical Summary ---
Author Organization [facility] Address [address] [place] [id number] Care Team Providers Care Medical Office Administrator Name Role Phone Paula Mallory MD Primary Care Provider [phone] Allergies No known active allergies Medications vitamin [...] Active Active Problems No known active problems Immunizations Immunization Administration Dates Next Due Influenza (Generic) 05/15/2021,05/19/2017 [...] P M CDT Height 157.5 cm (5' 2) 10/09/2022 1:21 PM CDT Body Mass Index 28.02 10/09/2022 1:21 PM CDT Plan of Treatment Health Maintenance Due Date Last Done Comments Colorectal Cancer Screening Colonoscopy (10 Years) 1974 Hepatitis C 1992 DTaP, Tdap and Td Vaccines (1 - Tdap) 1993 Hepatitis B Vaccines (1 of 3 - 19+ 3-dose series) 1993 Cervical Cancer Screening Pap with HPV Testing (Age 30 to 64) Every 5 Years 2004 Mammogram Screening 2014 Annual Physical 10/10/2023 10/09/2022 Pneumococcal Vaccine: 50+ Years (1 of 1 - PCV) 2024 Zoster Vaccines (1 of 2) 2024 PHQ-2 (Physician [place]) 07/28/2024 COVID-19 Vaccine ( season) 2025 07/23/2021, 10/15/2020, 09/23/2020 Influenza Adult (#1) 2025 06/11/2023, 06/03/2022, 05/15/2021, Additional history exists Cervical Cancer Screening Pap Smear (Age 30 to 64) Every 3 Years 06/11/2026 06/11/2023 Cervical Cancer Screening with HPV 06/11/2026 Meningococcal Vaccine Aged Out 07/01/2019, 017 No longer eligible based on patient's age to complete this topic Hepatitis A Vaccines Aged Out No long er eligible based on patient's age to complete this topic Meningococcal B Vaccine Aged Out No l onger eligible based on patient's age to complete this topic RSV Immunizations Under 20 Months Aged Out No longer eligible based on patient's age to complete this topic Insurance [facility] Care Teams Medical Office Administrator Relationship Specialty Start Date End Date Paula Malolry MD [address] [address] PCP - General INTERNAL MEDICINE 10/07/22
--- OUTSIDE RECORDS SUMMARY | 2025-05-13 16:05 | XMS_ITS | Encounter Summary ---
Author Organization [facility] Address [address] [place] [address] Phone Care Team Providers Care Candle Extrusion Machine Operator Name Role Phone Katya Fonseca MD Primary Care Provider [phone] Reason for Visit * Reason Comments Medication Refill Encounter Details Date Type Department Care Team (Late st Contact Info) Description 10/19/2020 Refill [facility] [address] [place] [address] [place] [address] [place] [address] Medication Refill Social History Tobacco [...] Miscellaneous Notes * Telephone Encounter - Edelmira Lema PAC - 10/20/2020 4:20 PM CDT Patient should [...] Hypothyroidism due to acquired atrophy of thyroid [facility] Katya Beal MD 1 year ago Encounter for screening mammogram for breast cancer [facility] Katya Beal MD 2 years ago Anxiety [facility] Katya Beal MD 2 years ago Palpitations [facility] Katya Beal MD 3 years ago Hypothyroidism due to acquired atrophy of thyroid [facility] Katya Beal MD Upcoming Appointments Future Appointments In 3 weeks Keesha Barrera Cecilia, OLMAN [facility] Gastroenterology [facility] PAPER MAKING MACHINE OPERATOR - Recent and Past Visits Recent Visits Date Type Provider Dept 08/23/20 Office Visit Katya Fonseca MD [facility] Showing recent visits within past 460 days [...] Hypothyroidism due to acquired atrophy of thyroid [facility] - Katya Beal MD 1 year ago Encounter for screening mammogram for breast cancer [facility] - Katya Beal MD 2 years ago Anxiety [facility] - Katya Beal MD 2 years ago Palpitations [facility] - Katya Beal MD 3 years ago Hypothyroidism due to acquired atrophy of thyroid [facility] - Katya Beal MD Upcoming Appointments Future Appointments In 3 weeks Keesha Barrera Cecilia, PAC [facility] Gastroenterology - [facility] PAPER MAKING MACHINE OPERATOR - Recent and Past Visits Recent Visits Date Type Provider Dept 08/23/20 Office Visit Katya [facility]sec[facility] Dmitry Showing recent visits within past 460 [...] Total Score: 0 08/23/19 21 7:33 AM SENIOR INTERACTION DESIGNER documented as of this encounter Care Teams Candle Extrusion Machine Operator Relationship Specialty Start Date End Date Katya Fonseca MD PCP - General Family Medicine 07/01/15 01/12/24 documented as of this encounter
--- OUTSIDE RECORDS SUMMARY | 2025-05-13 16:05 | XMS_ITS | Encounter Summary ---
Author Organization [facility] Address [address] [facility] [place] [address] Phone Care Team Providers Care Band Edger Name Role Phone Katya Fonseca MD Primary Care Provider [phone] Reason for Visit * Reason Onset Date Comments Referral 04/08/2023 External Gastroe nterology Referral Encounter Details Date Type Department Care Team (Late st Contact Info) Description 04/08/2023 Telephone [facility] [address] [place], [place] [id number] [place] [address] [phone] Referral (External Gastroenterology Referral) Social History Tobacco [...] Rubio - 04/08/2023 10:08 AM CDT SITUATION: [facility] Referrals is requesting provider review for External [...] Total Score: 0 06/03/20 22 7:[address] MAGISTRATE documented as of this encounter Care Teams Band Edger Relationship Specialty Start Date End Date Katya Fonseca MD PCP - General Family Medicine 07/01/15 01/12/24 documented as of this encounter
--- OUTSIDE RECORDS SUMMARY | 2025-05-13 16:05 | XMS_ITS | Clinical Summary ---
Author Organization [facility] Address [address] [place] [address] Phone Care Team Providers Care Residential Roofer Name Role Phone Unavailable Primary Care Provider Unavailabl e Allergies No known active allergies Medications Aspirin-Acetamin ophen-Caffeine (MIGRAINE FORMULA PO) Take by mouth. Active VITAMIN D PO Take 3,000 Units by mouth daily. Active levothyroxine (SYNTHROID) 75 MCG Tablet Take 1 Tablet by mouth daily. 90 Tablet 1 06/11/2023 Active Vitamin D, Ergocalciferol, 18952 units Capsule Take 50,000 Int'l Units by mouth once a week. 8 Capsule 09/02/2023 Active escitalopram (LEXAPRO) 10 MG Tablet Take 1 Tablet by mouth daily. 90 Tablet 09/02/2023 Active metoprolol Succinate (TOPROL-XL) 25 MG TABLET SR 24 HR Take 1 tablet by mouth once daily 30 Tablet 12/25/2023 Active Active Problems Problem Noted Date Diagnosed Date Anxiety Hypothyroidism Prediabetes Immunizations Immunization Administration Dates Next Due Influenza [...] Comments Blood Pressure 136/88 06/11/2023 7:34 AM LOFT WORKER PILE DRIVING Pulse 77 06/11/2023 7:34 AM LOFT WORKER PILE DRIVING Temperature 36.4 C (97.6 F) 06/11/2023 7:34 AM LOFT WORKER PILE DRIVING Respiratory Rate 18 02/17/2023 11:29 AM CDT Oxygen Saturation 100% 06/11/2023 7:34 AM LOFT WORKER PILE DRIVING Inhaled Oxygen Concentration - - Weight 71.7 kg (158 lb) 06/11/2023 7:34 AM LOFT WORKER PILE DRIVING Height 152.4 cm (5') 06/11/2023 7:34 AM LOFT WORKER PILE DRIVING Body Mass Index 30.86 06/11/2023 7:34 AM LOFT WORKER PILE DRIVING Plan of Treatment Health Maintenance Due Date Last Done Comments Hepatitis C Virus (HCV) Screening 1974 TdaP Immunization 1974 Hepatitis B Immunization (1 of 3 - 19+ 3-dose series) 1993 HPV/Cotest 2004 Cologuard 2019 Colonoscopy 2019 Colorectal Cancer Screening 2019 Immunochemical Fecal Occult Blood 2019 Mammogram 02/11/2020 02/10/2019 Pneumococcal Immunization (50+ years) (1 of 1 - PCV) 2024 Zoster Immunization (1 of 2) 2024 Influenza Immunization (#1) 03/28/202505/28, 06/03/2022, 06/03/2022, Additional history exists SARS-COV-2 Immunization (2024- season) 2025 07/23/2021, 10/15/2020, 09/23/2020 Cervical Cancer Screening (CCS) 06/11/2026 Pap Smear 06/11/2026 06/11/2023, 07/19/2014 Respiratory Syncytial Virus (RSV) Immunization (Adult) (1 - 1-dose 75+ series) 2049 Discussion re Starting/Frequency of Mammograms Discontinued 02/10/2019 Meningococcal Immunization (ACWY) Aged Out 07/01/2019, 12/10/2016 No longer eligibl e based on patient's age to complete this topic Human Papillomavirus (HPV) Immunization Aged Out No longer eligible based on patient's age to complete this topic Rotavirus Immunization Aged Out No lo nger eligible based on patient's age to complete this topic Procedures Procedure Name Priority Date/Time Associated Diagnosis Comments PATHOLOGY CYTOLOGY TAXICAB STARTER Routine 06/11/2023 9:23 AM LOFT WORKER PILE DRIVING Well woman exam SHERIF SCREENING BILATERAL DIGITAL W CAD W NGUYEN Routine 02/10/2019 11:39 AM CDT Encounter for screening mammogram for breast cancer from Last 3 Months or Most Recently Relevant to Health Maintenance Results * PATHOLOGY CYTOLOGY TAXICAB STARTER (06/11/2023 9:23 AM LOFT WORKER PILE DRIVING) SPECIMEN ADEQUACY Satisfactory for evaluation. Endocervical/transf ormation zone component is absent. 06/23/2023 12:38 PM LOFT WORKER PILE DRIVING [facility] DESCRIPTIVE DIAGNOSIS NEGATIVE FOR INTRAEPITHELIAL LESIONS OR MALIGNANCY. 06/23/2023 12:38 PM LOFT WORKER PILE DRIVING [facility] at 1238 LOFT WORKER PILE DRIVING Automated Examination Analysis of this sample has been assisted by an automated imaging and review system (Thinprep Imaging System, [employer], [place], [place]). This case is further evaluated and finalized by a position classification specialist and/or pathologist. 06/23/2023 12:38 PM LOFT WORKER PILE DRIVING [facility] Disclaimer The PAP smear is a screening [...] recommended every three years for women 21-29, Co-Testing, a PAP test in conjunction with an HPV (Human Papillomavirus) test for women ages 30-65, and no PAP or HPV testing for women under the age of 21 or older than 65 unless clinically indicated. 06/23/2023 12:38 PM LOFT WORKER PILE DRIVING [facility] Case Report Gynecologic Cytology Report Case: [id number] Authorizing Provider: Katya Fonseca MD Collected: 06/11/2023 09:23 AM Ordering Location: [facility] - Family Received: [facility]23 09[facility] Andrae Bryant Rescreen: Sintia Lucio Specimen: TP Screen, Cervix/Endocervix 06/23/2023 12:38 PM LOFT WORKER PILE DRIVING [facility] Other CERVIX UTERI STRUCTURE / Unknown Non-Phlebotomy Collection / Unknown 06/11/2023 9:23 AM LOFT WORKER PILE DRIVING 06/11/2023 9:23 AM LOFT WORKER PILE DRIVING us Katya Fonseca MD PATHOLOGY/CYTOLOGY ORDERABL ES Final Result [facility] [address] [place] [address], * SHERIF SCREENING BILATERAL DIGITAL W CAD [...] signed by: Helen Atkins M.D. rb/penrad:02/10/2019 15:13:56 Adzing And Boring Machine Helper: Em Porter (R), [facility] sent: Normal Exam Reading [...] exam. Electronically signed by: Helen pinto/penrad:02/10/2019 15:13:56 Adzing And Boring Machine Helper: Em Porter (R), [facility] letter sent: Normal Exam Reading location: MON BI-RADS: 1 Negative Katya Fonseca MD IMG MAMMO ORDERABLES Final Result from Last 3 Months or Most Recently Relevant to Health Maintenance Insurance [facility]
--- OUTSIDE RECORDS SUMMARY | 2025-05-13 16:05 | XMS_ITS | Encounter Summary ---
Author Organization [facility] Address [address] [facility] [place] [address] Phone Care Team Providers Care Lead Teacher Name Role Phone Katya Fonseca MD Primary Care Provider Reason for Visit * Reason Comments Medication Refill Encounter Details Date Type Department Care Team (Late st Contact Info) Description 02/25/2022 Refill [facility] - Family Medicine [facility] [address] [place] [address] [place] [address] [place] [address] Medication Refill Social History Tobacco [...] Total Score: 0 08/23/19 21 7:33 AM MICROWAVE REMOTE SENSING SCIENTIST documented as of this encounter Care Teams Lead Teacher Relationship Specialty Start Date End Date Katya Fonseca MD PCP - General Family Medicine 07/01/15 01/12/24 documented as of this encounter
[2025-05-13 18:53] LABS: Free T4 Free Thyroxine 1.45 ng/dL (0.78-2.19)
[2025-05-13 19:13] LABS: Thyroid Stimulating Hormone 2.510 uIU/mL (0.465-4.680)
== END 2025-05-13 16:03 | disposition home or self-care (01) ==
LOC: ANHGOSHLAB 16:03
PROVIDERS: PCP Family Medicine; Visit Provider Family Medicine
DX: E03.9 Hypothyroidism, unspecified (principal)
CPT/HCPCS: 36415; 84439; 84443